=== PATIENT | female | born 1990 | race Caucasian/White ===

== ENCOUNTER 2016-04-27 18:43 | Emergency (ER) | payer OTHER ==
[~2016-04-27] VITALS: Ht 167.6 cm; Wt 65.0 kg
[~2016-04-27 18:43] MED LIST: AUGMENTIN500 MG PO; LIDOCAINE20 MG/1 M5 PO; METHADONE10 MG/1 M1 PO; Motrin PO; NAPROSYN500 MG PO; NATALCARE RX1 TABLE1 PO; NOHOMEMEDS; ORTHO CYCLEN1 TABLET PO; PEN-VEE K,VEET500 MG PO; ZOFRAN4 MG PO
[2016-04-27 21:17] VITALS: BP 124/74
== END 2016-04-27 21:18 | disposition home or self-care (01) ==
LOC: EME 18:43 → EXP 18:43
PROC: 3E0T3CZ (ICD-10-PCS; principal; 2016-04-27)
PROC: 3E0234Z Introduction of Serum, Toxoid and Vaccine into Muscle, Percutaneous Approach (ICD-10-PCS; 2016-04-27)
DX: S61.210A Laceration without foreign body of right index finger without damage to nail, initial encounter (principal); W29.0XXA Contact with powered kitchen appliance, initial encounter; Y93.G1 Activity, food preparation and clean up; Y99.0 Civilian activity done for income or pay; Z23 Encounter for immunization; F17.200 Nicotine dependence, unspecified, uncomplicated
CPT/HCPCS: 99281; 99284

== ENCOUNTER 2016-09-12 08:00 | Day surgery (SDC) | payer OTHER ==
[~2016-09-12] VITALS: Ht 165.1 cm; Wt 64.0 kg
[2016-09-12 08:22] VITALS: BP 108/63
[2016-09-12] MEDS ORDERED: ENDOCET 5-3251 EACH PO (10:42)
[2016-09-12 11:26] VITALS: BP 98/53
== END 2016-09-12 11:55 | disposition home or self-care (01) ==
LOC: SDC 08:00
PROC: 0UBC7ZX Excision of Cervix, Via Natural or Artificial Opening, Diagnostic (ICD-10-PCS; principal; 2016-09-12)
DX: N87.9 Dysplasia of cervix uteri, unspecified (principal); F41.8 Other specified anxiety disorders; B19.20 Unspecified viral hepatitis C without hepatic coma; F17.210 Nicotine dependence, cigarettes, uncomplicated; Z80.41 Family history of malignant neoplasm of ovary
CPT/HCPCS: 84702; 85025; 86900; 86901; 88305; 88307; J1100; J1885; J2175; J2250; J2405; J2765; J3010

== ENCOUNTER 2016-12-10 13:37 | Emergency (ER) | payer OTHER ==
[~2016-12-10] VITALS: Ht 165.1 cm; Wt 65.9 kg
[~2016-12-10 13:37] MED LIST changes: +ENDOCET 5-3251 EACH PO
[2016-12-10 15:12] LABS: HEMATOCRIT 38.3 % (36.0-46.0); MCH 29.7 PG (29.0-34.0); MCHC 33.9 G/DL (30.0-36.0); MCV 87.4 FL (83-99); PLATELET COUNT 239 K/uL (156-360); RBC DIS.WIDTH-CV 12.1 % (11.8-14.6); RBC DIS.WIDTH-SD 38.9 % (39-53); RED BLOOD COUNT 4.38 M/uL (3.80-5.20)
[2016-12-10 15:23] LABS: CHLORIDE 108 mEq/L (99-109); POTASSIUM 4.1 mEq/L (3.7-5.4); SODIUM 141 mEq/L (136-147)
[2016-12-10 15:25] LABS: GLUCOSE 95 mg/dL (70-99)
[2016-12-10 15:26] LABS: ANION GAP 9 MEQ/L (2-14)
[2016-12-10 15:27] LABS: TOTAL BILIRUBIN 0.4 mg/dL (0.0-1.0)
[2016-12-10 15:28] LABS: ALKALINE PHOSPHATASE 52 IU/L (3-129)
[2016-12-10 15:29] LABS: GFR ESTIMATE (CALCULATED) > 59 mL/min/
[2016-12-10 15:30] LABS: UREA NITROGEN (BUN) 7 mg/dL (9-23)
[2016-12-10 15:34] LABS: ADD MIUA? YES; BILIRUBIN NEGATIVE; BLOOD MODERATE; COLOR YELLOW ((YELLOW)); GLUCOSE (STRIP) NEGATIVE; KETONES NEGATIVE; LEUKOCYTES NEGATIVE; NITRITE NEGATIVE; PROTEIN (STRIP) NEGATIVE; UROBILINOGEN 0.2 MG/DL (0.2-1.0)
[2016-12-10 15:38] LABS: QUANTITATIVE HCG < 4.0 MIU/ML
[2016-12-10 15:40] LABS: BACTERIA RARE /HPF; EPITHELIAL CELLS 1+ /HPF; MUCUS TRACE /LPF; RED BLOOD CELLS 0-5 /HPF (0-5); UCUL ADDED? YES
[2016-12-10] MEDS ORDERED: PERCOCET 5/31 TABLET PO (19:01)
[2016-12-10 19:24] VITALS: BP 122/72
== END 2016-12-10 19:27 | disposition home or self-care (01) ==
LOC: EME 13:37
DX: D25.9 Leiomyoma of uterus, unspecified (principal); J45.909 Unspecified asthma, uncomplicated; F17.200 Nicotine dependence, unspecified, uncomplicated
CPT/HCPCS: 76856; 80053; 81003; 84702; 85027; 87086; 99281; 99284